=== PATIENT | male | born 1985 | race Caucasian/White ===

== ENCOUNTER 2022-05-05 01:27 | Day surgery (SDC) | payer OTHER, SELFPAY ==
[2022-04-27 10:58] VITALS: BMI 27.9
--- NOTE | 2022-05-04 13:14 | P.HP_ITS ---
History of Present Illness History of Present Illness Consent: Risks, benefits, and alternatives have been discussed and questions answered. Patient agrees to proceed with procedure. Chief complaint: dysphagia Narrative: Denilson Nazario is a 36 year old male Was having increasing difficulty with swallowing. [facility] Social History Social History Smoking status: Never smoker Alcohol intake: current Substance use: never Substance use type: does not use Living arrangements: with family Spiritual care concerns: No Meds Home Medications and Allergies Home Medications Medication Instructions Recorded Confirmed Type No Home Medications 04/27/22 04/27/22 History Allergies Allergy/AdvReac Type Severity Reaction Status Date / Time No Known Allergies Allergy Verified 04/27/22 10:59 Assessment and Plan Assessment and plan (1) Dysphagia: Code(s): R13.10 - Dysphagia, unspecified Status: Acute Assessment and Plan: EGD with possible biopsy or dilatation or cautery.
[2022-05-05 08:43] VITALS: BP 133/67; PULSE 65; RESP 18; TEMP 36.2; O2SAT 98
--- NOTE | 2022-05-05 08:47 | PM.HPGS ---
History of Present Illness History of Present Illness Consent: Risks, benefits, and alternatives have been discussed and questions answered. Patient agrees to proceed with procedure. Chief complaint: dysphagia Narrative: Denilson Nazario is a 36 year old male with dysphagia. . For about 6 months he has had difficulty swallowing solid food. Often it would feel like something is lodged in his throat and would be difficult to breathe. This could last up to 20 minutes. He has had no weight loss. At 1st these episodes were about once a month but now that can be 2 or 3 times a week. Review of Systems Review of Systems: All systems reviewed & are unremarkable except as noted in HPI and below PMFSH Social History Social History Smoking status: Never smoker Alcohol intake: current Substance use: never Substance use type: does not use Living arrangements: with family Spiritual care concerns: No Meds Home Medications and Allergies Home Medications Medication Instructions Recorded Confirmed Type No Home Medications 04/27/22 05/05/22 History Allergies Allergy/AdvReac Type Severity Reaction Status Date / Time No Known Allergies Allergy Verified 05/05/22 08:42 Exam Const: General: alert Orientation/consciousness: patient oriented x3 Resp: Auscultation: clear to auscultation bilaterally Cardio: Rhythm: regular rhythm GI: GI Palp: Yes Soft to palpation and No Tenderness to palpation present (GI) Neuro: General: patient oriented x3 Assessment and Plan Assessment and plan (1) Dysphagia: Code(s): R13.10 - Dysphagia, unspecified Status: Acute Assessment and Plan: EGD with possible biopsy or dilatation or cautery.
[2022-05-05] MEDS: LACTATED RINGERS 1,000 ML 150 ML IV CONT (08:56)
--- NOTE | 2022-05-05 09:24 | P.PNAN_ITS ---
Anes - Initial Pre Proc Eval Procedure: Operation Date: 05/05/22 09:30 Proposed Procedures p Esophagogastroduodenoscopy - Arnaud Lakhani MD Date/Time: 05/05/22 09:24 Surgeon: Arnaud Lakhani MD Pre Op Diagnosis: dysphagia Patient Data Age: 36 Gender: M Height: 1.8 m Weight: 99 kg Last Vital Signs Temp 97.2 F L 05/05/22 08:43 Pulse 65 05/05/22 08:43 Resp 18 05/05/22 08:43 BP 133/67 05/05/22 08:43 Pulse Ox 98 05/05/22 08:43 O2 Del Method Room Air 05/05/22 08:43 Allergies Allergy/AdvReac Type Severity Reaction Status Date / Time No Known Allergies Allergy Verified 05/05/22 08:42 Home Medications Medication Instructions Recorded Confirmed Type No Home Medications 04/27/22 05/05/22 History Patient hx anesthesia problems: none Family hx anesthesia problems: none Results Review: All pre-operative results and documents have been reviewed as part of the pre- operative evaluation. [facility] Social History Social History Smoking status: Never smoker Alcohol intake: current Substance use: never Substance use type: does not use Living arrangements: with family Spiritual care concerns: No Anes - Eval Final PreProcedure Day of Procedure 05/05/22 09:24 Patient weight: normal Heart: regular rate and rhythm Lungs: clear to auscultation Airway: Mallampati scale class II Neurological: alert and oriented Last oral intake: >/= 8 hours ASA classification: II Emergent: no Anesthetic plan: proceed Anesthesia type and monitoring: general GIVS and standard monitoring Results Review: All pre-operative results and documents have been reviewed as part of the pre- operative evaluation. Informed Consent: The patient's anesthetic plan and its attendant risks and benefits were discussed with the patient/family/POA. Questions were solicited and answers provided to the satisfaction of the patient/family/POA.
[2022-05-05 09:39] VITALS: BP 111/73; PULSE 79; RESP 26; O2SAT 98
[2022-05-05 09:49] VITALS: BP 135/86; PULSE 70; RESP 37; O2SAT 97
[2022-05-05 09:59] VITALS: BP 119/80; PULSE 58; RESP 20; O2SAT 100
== END 2022-05-05 10:04 | disposition home or self-care (01) ==
PROVIDERS: PCP Internal Medicine; Visit Provider Internal Medicine Gastroenterology
PROC: 0DJ08ZZ Inspection of Upper Intestinal Tract, Via Natural or Artificial Opening Endoscopic (ICD-10-PCS; CPT 43235; principal; 2022-05-05 09:30)
DX: K21.00 Gastro-esophageal reflux disease with esophagitis, without bleeding (principal); K29.80 Duodenitis without bleeding
CPT/HCPCS: 43239; 88305; J2704; J7120